=== PATIENT | male | born 1950 | race Caucasian/White ===

== ENCOUNTER 2020-12-15 15:58 | Emergency (ER) | payer MEDICAID ==
[~2020-12-15] VITALS: Ht 175.3 cm; Wt 100.0 kg
[2020-12-15 16:03] VITALS: BP 118/72
[2020-12-15] MEDS ORDERED: BLOOD THINNER PO (16:17)
[2020-12-15] MEDS ORDERED: MELA3TAB89 PO (16:17)
[2020-12-15] MEDS ORDERED: HYDR-4723 PO (16:17)
== END 2020-12-15 18:38 | disposition home or self-care (01) ==
LOC: EMS 15:58
DX: M25.512 Pain in left shoulder (principal); J44.9 Chronic obstructive pulmonary disease, unspecified; F17.200 Nicotine dependence, unspecified, uncomplicated
CPT/HCPCS: 99282; Z7502